=== PATIENT | female | born 1955 | race Caucasian/White ===

== ENCOUNTER 2017-07-22 11:49 | Inpatient (IN) | payer MEDICARE, OTHER ==
[~2017-07-22] VITALS: Ht 160 cm; Wt 57.2 kg
[~2017-07-22 11:49] MED LIST: ALPR0.25 PO; ASPI81TA3 PO; BEN25 PO; CHOL2000 PO; CIPR500T4 PO; CLON-429 PO; DUR100 TD; ESCI10TA PO; HYDR2TAB36 PO; LACTINEX PO; LAMO25TB2 PO; LEVO137T3 PO; MAGN400C PO; METR500T PO; MIDO5TAB PO; MULT-761 PO; PANT40TA4 PO; PRED5TAB PO
[2017-07-22] MEDS ORDERED: ONDANSETRON 4 MG INJ ONE (12:48)
[2017-07-22] MEDS ORDERED: SOD CHLORIDE 0.9% 1,000 ML IV STA ×2 (12:50→16:31)
[2017-07-22] MEDS ORDERED: HYDROmorphONE 1 MG/ML SYG IV STA ×3 (12:50→19:00)
[2017-07-22] MEDS ORDERED: PROCHLORPERAZINE 10 MG INJ IV ONE ×2 (13:00→17:00)
[2017-07-22 13:54] LABS: BASOPHIL # 0.1 10^3/ul (0.0-0.1); BASOPHILS % 0.7 % (0.0-2.0); EOSINOPHILS % 0.4 % (0.0-7.0); HEMATOCRIT 41.1 % (37.0-47.0); HEMOGLOBIN 13.9 g/dl (12.0-16.0); LYMPHOCYTES # 1.3 10^3/ul (0.8-2.9); LYMPHOCYTES % 13.6 % (15.0-51.0); MEAN CORPUSCULAR HGB CONC 33.8 g/dl (32.0-37.0); MEAN CORPUSCULAR VOLUME 88.8 fl (82.0-101.0); MEAN PLATELET VOLUME 9.5 fl (7.4-10.4); MONOCYTE # 0.4 10^3/ul (0.3-0.9); MONOCYTES % 3.6 % (0.0-11.0); NEUTROPHIL # 7.9 10^3/ul (1.6-7.5); NEUTROPHILS % 81.3 % (39.0-77.0); PLATELET COUNT 501 10^3/UL (140-415); RED BLOOD COUNT 4.63 10^6/ul (4.20-5.40); RED CELL DISTRIBUTION WIDTH 12.3 % (11.5-14.5); WHITE BLOOD COUNT 9.7 10^3/ul (4.8-10.8)
[2017-07-22 14:30] LABS: ALBUMIN 4.4 g/dl (3.3-4.9); ALBUMIN/GLOBULIN RATIO 1.1; BILIRUBIN,INDIRECT 0.2 mg/dl (0-1.1); BILIRUBIN,TOTAL 0.2 mg/dl (0.2-1.3); CALCIUM 10.6 mg/dl (8.4-10.2); CREATININE 0.64 mg/dl (0.44-1.00); POTASSIUM 3.7 mmol/L (3.5-5.1); TOTAL PROTEIN 8.4 g/dl (6.1-8.1)
[2017-07-22] MEDS ORDERED: LORA1TAB PO (14:39)
[2017-07-22] MEDS ORDERED: SOD CHLORIDE 0.9% 100 ML ONE (14:50)
[2017-07-22] MEDS ORDERED: IOHEXOL 300MG/ML 150 ML BTL ONE (14:50)
--- NOTE | 2017-07-22 15:19 | RADRPT ---
PROCEDURE: CT Abdomen and Pelvis with contrast. CLINICAL INDICATION: Abdominal pain TECHNIQUE: CT scan of the abdomen and pelvis with contrast was performed on a multidetector high-r esolution CT scanner. Coronal and sagittal reformatted images were obtained from the axial source im ages. Images were reviewed on a high-resolution PACS workstation. 80 cc of Isovue 300 iodinated cont rast was administered intravenously without reported complication. The total exam CTDI equals 9 mGy and the total exam DLP equals 441 mGy-cm. One or more of the following dose reduction techniques w ere used: Automated exposure control, Adjustment of the mA and/or kV according to patient size, and/ or use of iterative reconstruction technique. DICOM images are available. COMPARISON: Abdominal CT 10/25/2014 FINDINGS: The lung bases are clear. Unchanged focal geographic hepatic hypoattenuation adjacent to the fissure of the ligamentum teres. Portal vein is patent. No pancreatic ductal dilatation. The spleen and adrenals are unremarkable. No focal pericholecystic inflammatory changes. No hydronephrosis. No obstructing renal stone. No bowel obstruction. Appendix not visualized. Diffuse colonic wall thickening is identified. Bilate ral fat containing posterior lateral hernias in the flanks at the level of the kidneys, unchanged. No significant retroperitoneal lymphadenopathy, ascites or evidence of pneumoperitoneum. Aortoiliac atherosclerosis. No rim-enhancing fluid collection. Uterus is absent. Degenerative changes of the spine with chronic compression fractures L1 and L5. Streak artifact from right total hip arthroplasty and left femoral andry and screws for prior left hip fracture. IMPRESSION: Diffuse colonic wall thickening compatible with colitis. No evidence of bowel obstruction or intra-abdominal abscess. Focal hepatic steatosis adjacent to the fissure of the ligamentum teres. RPTAT: AA .Luis Fernando Nelson MD, MD Date Time Electronically viewed and signed by .Luis Fernando Nelson MD, MD on 07/22/2017 15:19 .T/
[2017-07-22] MEDS ORDERED: ERTAPENEM SODIUM 1 GM in SOD CHLORIDE 0.9% 100 ML IVPB ONE (17:00)
--- NOTE | 2017-07-22 17:00 | ERD ---
ER Documentation Chief Complaint Chief Complaint NAUSEA AND VOMITING FOR THE PAST FEW DAYS. GEN WEAKNESS. NO TRAUMA. HPI This is a 62-year-old female who is here for nausea vomiting diarrhea abdominal pain. Patient has a history of ulcerative colitis. The patient states her diarrhea and vomiting is nonbloody. Patient has diffuse crampy abdominal pain this onset is been going on for 2 days now. She states she has had about 20 rounds of diarrhea and 15 bouts of vomiting. Denies any fever or back pain. She says the symptoms are mostly consistent with ulcerative colitis exacerbation. Patient states her pain is moderate to severe ROS All systems reviewed and are negative except as per history of present illness. Medications Home Meds Reported Medications Lorazepam* (Lorazepam*) 1 Mg Tablet, 1 MG PO BID Y for ANXIETY, #30 TAB 07/22/17 Pantoprazole (Protonix) 40 Mg Tabec, 40 MG PO DAILY 09/05/13 Multivitamin (MULTI VITAMIN DAILY) 1 Each Tablet, 1 EACH PO DAILY 09/05/13 Midodrine (Proamatine) 5 Mg Tablet, 5 MG PO TID 09/05/13 Lamotrigine* (Lamictal* CHEW) 25 Mg Tab.disper, 25 MG PO BID 09/05/13 Hydromorphone Hcl* (Dilaudid*) 2 Mg Tablet, 2 MG PO Q3NARC 09/05/13 Fentanyl Patch* (Duragesic Patch*) 1 Patch Patch, 1 PATCH TD Q72 09/05/13 Escitalopram Oxalate* (Lexapro*) 10 Mg Tablet, 10 MG PO DAILY 09/05/13 Diphenhydramine Hcl* (Benadryl*) 25 Mg Cap, 25 MG PO Q6 09/05/13 Clonazepam* (Klonopin*) 0.5 Mg Tab, 0.5 MG PO HS 09/05/13 Cholecalciferol* (Vitamin D3*) 2,000 Unit Cap, 2000 UNIT PO DAILY 09/05/13 Aspirin (Aspirin) 81 Mg Chew, 81 MG PO DAILY 09/05/13 Alprazolam* (Xanax*) 0.25 Mg Tablet, 0.25 MG PO TID 09/05/13 Lactobacillus Acidophilus* (Lactinex*) 1 Tab Chew, 1 TAB PO DAILY 09/05/13 Discontinued Reported Medications Magnesium Oxide (Mag Oxide) 400 Mg Capsule, 400 MG PO DAILY 09/10/13 Prednisone* (Prednisone*) 5 Mg Tab, 5 MG PO DAILY 09/05/13 Levothyroxine Sodium* (Levothyroxine Sodium*) 137 Mcg Tablet, 137 MCG PO DAILY 09/05/13 Discontinued Scripts Ciprofloxacin Hcl* (Ciprofloxacin Hcl*) 500 Mg Tablet, 500 MG PO BID for 7 Days , TAB Prov:DOM CONCEPCION MD 10/27/14 Metronidazole* (Flagyl*) 500 Mg Tablet, 500 MG PO Q8 for 10 Days, TAB Prov:DOM CONCEPCION MD 10/27/14 Allergies Allergies: Coded Allergies: cortisone (Verified Allergy, Unknown, BREAKS OUT WITH RASH, 07/22/17) PMhx/Soc History of Surgery: Yes (HYSTERECTOMY,NICA HIP SURGERY) Anesthesia Reaction: No Hx Neurological Disorder: No Hx Respiratory Disorders: No Hx Cardiac Disorders: Yes (HTN) Hx Psychiatric Problems: Yes (DEPRESSION) Hx Miscellaneous Medical Probl: Yes (CHRONIC PAIN,DVT,WAS ON CHEMOTHERAPY LONG TIME AGO PER PT,LYMPHOMA) Hx Alcohol Use: No Hx Substance Use: No Hx Tobacco Use: Yes Smoking Status: Current every day smoker FmHx Family History: No coronary disease Physical Exam Vitals Vital Signs Date Time Temp Pulse Resp B/P Pulse Ox O2 Delivery O2 Flow Rate FiO2 07/22/17 16:26 104 20 84/52 94 Room Air 07/22/17 14:30 107 20 111/57 99 Room Air 07/22/17 11:58 97.7 78 20 105/61 98 Physical Exam Const: Well-developed, well-nourished, in obvious pain Head: Atraumatic, normocephalic Eyes: Normal Conjunctiva, PERRLA, EOMI, normal sclera, no nystagmus ENT: Normal External Ears, Nose and Mouth, moist mucus membranes. Neck: Full range of motion. No meningismus, no lymphadenopathy. Resp: Clear to auscultation bilaterally, no wheezing, rhonchi, rales Cardio: Regular rate and rhythm, no murmurs, S1 S2 present Abd: Soft, diffuse moderate tenderness, non distended. Normal bowel sounds, no guarding or rebound, no pulsitile abdominal masses or bruits Skin: No petechiae or rashes, no ecchymosis , no maculopapular rash Back: No midline or flank tenderness Ext: No cyanosis, or edema, FROM x 4, normal inspection, neurovascularly intact x 4 Neur: Awake and alert, STR 5/5 x 4, sensation intact x 4, no focal findings, cerebellum intact Psych: Normal Mood and Affect Result Diagram: 07/22/17 1335 07/22/17 1335 Results 24 hrs Laboratory Tests Test 07/22/17 13:35 White Blood Count 9.710^3/ul Red Blood Count 4.6310^6/ul Hemoglobin 13.9g/dl Hematocrit 41.1% Mean Corpuscular Volume 88.8fl Mean Corpuscular Hemoglobin 30.0pg Mean Corpuscular Hemoglobin Concent 33.8g/dl Red Cell Distribution Width 12.3% Platelet Count 45526^3/UL Mean Platelet Volume 9.5fl Neutrophils % 81.3% Lymphocytes % 13.6% Monocytes % 3.6% Eosinophils % 0.4% Basophils % 0.7% Nucleated Red Blood Cells % 0.0/100WBC Neutrophils # 7.910^3/ul Lymphocytes # 1.310^3/ul Monocytes # 0.410^3/ul Eosinophils # 0.010^3/ul Basophils # 0.110^3/ul Nucleated Red Blood Cells # 0.010^3/ul Sodium Level 142mmol/L Potassium Level 3.7mmol/L Chloride Level 100mmol/L Carbon Dioxide Level 28mmol/L Anion Gap 18 Blood Urea Nitrogen 11mg/dl Creatinine 0.64mg/dl Glucose Level 128mg/dl Calcium Level 10.6mg/dl Total Bilirubin 0.2mg/dl Direct Bilirubin 0.00mg/dl Indirect Bilirubin 0.2mg/dl Aspartate Amino Transf (AST/SGOT) 35IU/L Alanine Aminotransferase (ALT/SGPT) 43IU/L Alkaline Phosphatase 149IU/L Total Protein 8.4g/dl Albumin 4.4g/dl Globulin 4.00g/dl Albumin/Globulin Ratio 1.10 Lipase 154U/L Current Medications Medications (Trade) Dose Ordered Sig/Ernst Route PRN Reason Start Time Stop Time Status Last Admin Dose Admin Ondansetron HCl 4 mg 4 mg STK-MED ONCE .ROUTE 07/22/17 12:48 07/22/17 12:49 DC Sodium Chloride (NS) 1,000 ml @ 1,000 mls/hr Q1H STAT IV 07/22/17 12:50 07/22/17 13:49 DC 07/22/17 13:45 Hydromorphone HCl (Dilaudid) 1 mg ONCE STAT IV 07/22/17 12:50 07/22/17 12:51 DC 07/22/17 13:45 Prochlorperazine (Compazine Inj) 10 mg ONCE ONCE IV 07/22/17 13:00 07/22/17 13:01 DC 07/22/17 13:45 Hydromorphone HCl (Dilaudid) 1 mg ONCE STAT IV 07/22/17 14:40 07/22/17 14:41 DC 07/22/17 14:56 IV Flush 10 ml 10 ml STK-MED ONCE .ROUTE 07/22/17 14:50 07/22/17 14:51 DC 07/22/17 15:05 Sodium Chloride (NS) 100 ml @ ud STK-MED ONCE .ROUTE 07/22/17 14:50 07/22/17 14:51 DC 07/22/17 15:05 Iohexol 150 ml 150 ml STK-MED ONCE .ROUTE 07/22/17 14:50 07/22/17 14:51 DC 07/22/17 15:05 Sodium Chloride (NS) 1,000 ml @ 1,000 mls/hr Q1H STAT IV 07/22/17 16:31 07/22/17 17:30 07/22/17 16:54 Prochlorperazine (Compazine Inj) 10 mg ONCE ONCE IV 07/22/17 17:00 07/22/17 17:01 Procedures/MDM PROCEDURE: CT Abdomen and Pelvis with contrast. CLINICAL INDICATION: Abdominal pain TECHNIQUE: CT scan of the abdomen and pelvis with contrast was performed on a multidetector high-resolution CT scanner. Coronal and sagittal reformatted images were obtained from the axial source images. Images were reviewed on a high-resolution PACS workstation. 80 cc of Isovue 300 iodinated contrast was administered intravenously without reported complication. The total exam CTDI equals 9 mGy and the total exam DLP equals 441 mGy-cm. One or more of the following dose reduction techniques were used: Automated exposure control, Adjustment of the mA and/or kV according to patient size, and/or use of iterative reconstruction technique. DICOM images are available. COMPARISON: Abdominal CT 10/25/2014 FINDINGS: The lung bases are clear. Unchanged focal geographic hepatic hypoattenuation adjacent to the fissure of the ligamentum teres. Portal vein is patent. No pancreatic ductal dilatation. The spleen and adrenals are unremarkable. No focal pericholecystic inflammatory changes. No hydronephrosis. No obstructing renal stone. No bowel obstruction. Appendix not visualized. Diffuse colonic wall thickening is identified. Bilateral fat containing posterior lateral hernias in the flanks at the level of the kidneys, unchanged. No significant retroperitoneal lymphadenopathy, ascites or evidence of pneumoperitoneum. Aortoiliac atherosclerosis. No rim-enhancing fluid collection. Uterus is absent. Degenerative changes of the spine with chronic compression fractures L1 and L5. Streak artifact from right total hip arthroplasty and left femoral andry and screws for prior left hip fracture. IMPRESSION: Diffuse colonic wall thickening compatible with colitis. No evidence of bowel obstruction or intra-abdominal abscess. Focal hepatic steatosis adjacent to the fissure of the ligamentum teres. RPTAT: AA .Luis Fernando Nelson MD, MD Date Time Electronically viewed and signed by .Luis Fernando Nelson MD, on 07/22/2017 15:19 .T/ CC: MEHNAZ CASE DO Patient received IV fluids. She received Invanz 1 g IV. The patient has had continued vomiting here requiring a few doses of Compazine. The patient's pain is under control but she still quite nauseated. We will admit for IV fluids and bowel rest. The patient has diffuse colon wall thickening consistent with colitis likely ulcerative colitis exacerbation Departure Diagnosis: Primary Impression: Colitis Additional Impression: Abdominal pain Abdominal location: generalized Qualified Code: R10.84 - Generalized abdominal pain Condition: Stable MEHNAZ CASE DO Jul 22, 2017 17:00
[2017-07-22] MEDS ORDERED: SOD CHLORIDE 0.9% 1,000 ML IV SCH (17:11)
[2017-07-22] MEDS ORDERED: ACETAMINOPHEN 325 MG TAB PO PRN (17:30)
[2017-07-22] MEDS ORDERED: ONDANSETRON 4 MG INJ IV PRN ×2 (17:30→18:30)
--- NOTE | 2017-07-22 18:11 | HP ---
Date/Time of Note Date/Time of Note DATE: 07/22/17 TIME: 18:00 Assessment/Plan VTE Prophylaxis VTE Prophylaxis Intervention: LMWH Assessment/Plan Chief Complaint/Hosp Course 62 yo female with h/o C Diff colitis, questionable reported history of UC, opiate use for chronic pain syndrome, RA on methotrexate and xeljanz who presents with nausea, vomiting, diarrhea with imaging suggestive of colitis Colitis: - Patient reports a history of ulcerative colitis, though not clear if this is a true diagnosis from review of her chart - will treat for infectious colitis for now with zosyn - Consult GI for consideration of colonoscopy - Send stool for culture and C Diff RA: - Hold immunosupprisives (xeljanz and MTX) while concern for infection chronic pain w chronic opiate dependence: - Continue home [place] dosing General anxiety d/o: - Continue home meds: buspar, klonipin, celexa Discharge to home when colitis resolved Problems: HPI/ROS Admit Date/Time Admit Date/Time Hx of Present Illness 62 yo female with reported history of UC (though not clear from our chart she has this), RA on methotrexate and Xeljanz, C Diff colitis, chornic pain sydnrome on chornic opaites who presents with abdominal pain as well as nausea and vomiting and very frequent watery diarrhea. Patient has had these symptoms since yesterday. Unable to tolerate PO. In ED, CT scan showed colitis. She was very nauseous requiring numerous rounds of antiemetics. Currently major compliant is of abdmoinal pain for which she requests pian meds. PMH/Family/Social Social History Smoking Status: Current every day smoker Exam/Review of Systems Vital Signs Vitals Vital Signs Date Time Temp Pulse Resp B/P Pulse Ox O2 Delivery O2 Flow Rate FiO2 07/22/17 16:26 104 20 84/52 94 Room Air 07/22/17 11:58 97.7 Exam Exam Mildly uncomfortable appearing, but resting calmly in no distress AOx3 RRR, normal heart sounds Breathign comfortably, nonlabored Abdomen wtih voluntary guarding, no rebound tenderness, soft Ext withtout edema Labs Result Diagram: 07/22/17 1335 07/22/17 1335 Medications Medications Current Medications Sodium Chloride 1,000 ml @ 80 mls/hr [id number] IV ; Start 07/22/17 at 17:11; Stop 07/23/17 at 05:40 Piperacillin Sod/ Tazobactam Sod (Zosyn 3.375gm/ 50 ml (Pmx)) 50 ml @ 12.5 mls/ hr TID@ IVPB ; Start 07/22/17 at 18:00; Status JUAN PERKINS MD Jul 22, 2017 18:10
[2017-07-22] MEDS ORDERED: morphine 2 MG INJ IV PRN (18:30)
[2017-07-22] MEDS ORDERED: NACL 0.9% 3 ML SYG IV SCH (18:30)
[2017-07-22] MEDS: PIPER-TAZO 3.375 GM IV (PMX) 50 ML IVPB SCH (19:49)
[2017-07-22 20:24] VITALS: TEMP 98.1
[2017-07-22 21:35] VITALS: BP 93/52; RESP 16
[2017-07-22 21:49] VITALS: Ht 160 cm; Wt 57.2 kg
[2017-07-22] MEDS: HYDROmorphONE 1 MG/ML SYG IV PRN (22:11)
[2017-07-22] MEDS: ALPRAZOLAM 0.25 MG TAB PO SCH (22:11)
[2017-07-22] MEDS: METOCLOPRAMIDE 10 MG INJ IV SCH (22:11)
[2017-07-23] MEDS: PIPER-TAZO 3.375 GM IV (PMX) 50 ML IVPB SCH ×4 (01:15→18:20)
[2017-07-23 02:00] VITALS: BP 96/47; RESP 16
[2017-07-23] MEDS: HYDROmorphONE 1 MG/ML SYG IV PRN ×5 (02:53→19:59)
[2017-07-23] MEDS: METOCLOPRAMIDE 10 MG INJ IV SCH ×4 (05:27→18:18)
[2017-07-23 05:51] LABS: BASOPHIL # 0.1 10^3/ul (0.0-0.1); BASOPHILS % 0.7 % (0.0-2.0); EOSINOPHILS # 0.3 10^3/ul (0.0-0.5); EOSINOPHILS % 3.1 % (0.0-7.0); HEMATOCRIT 31.9 % (37.0-47.0); HEMOGLOBIN 10.4 g/dl (12.0-16.0); LYMPHOCYTES # 1.6 10^3/ul (0.8-2.9); MEAN CORPUSCULAR HEMOGLOBIN 29.9 pg (29.0-33.0); MEAN CORPUSCULAR HGB CONC 32.6 g/dl (32.0-37.0); MEAN CORPUSCULAR VOLUME 91.7 fl (82.0-101.0); MEAN PLATELET VOLUME 9.5 fl (7.4-10.4); MONOCYTE # 0.8 10^3/ul (0.3-0.9); MONOCYTES % 9.3 % (0.0-11.0); NEUTROPHIL # 5.4 10^3/ul (1.6-7.5); NEUTROPHILS % 66.3 % (39.0-77.0); PLATELET COUNT 345 10^3/UL (140-415); RED BLOOD COUNT 3.48 10^6/ul (4.20-5.40); RED CELL DISTRIBUTION WIDTH 12.5 % (11.5-14.5); WHITE BLOOD COUNT 8.1 10^3/ul (4.8-10.8)
[2017-07-23 06:27] LABS: ALBUMIN/GLOBULIN RATIO 0.93
[2017-07-23 06:36] LABS: ALBUMIN 2.8 g/dl (3.3-4.9); BILIRUBIN,INDIRECT 0.1 mg/dl (0-1.1); BILIRUBIN,TOTAL 0.1 mg/dl (0.2-1.3); CALCIUM 8.8 mg/dl (8.4-10.2); CREATININE 0.58 mg/dl (0.44-1.00); TOTAL PROTEIN 5.8 g/dl (6.1-8.1)
[2017-07-23 06:37] LABS: POTASSIUM 3.3 mmol/L (3.5-5.1)
[2017-07-23 08:08] VITALS: BP 89/48; RESP 12
[2017-07-23] MEDS: ESCITALOPRAM 10 MG TAB PO SCH (08:45)
[2017-07-23] MEDS: ALPRAZOLAM 0.25 MG TAB PO SCH ×3 (08:45→19:59)
[2017-07-23] MEDS: ENOXAPARIN 40 MG/0.4 ML SYG SC SCH (08:53)
[2017-07-23] MEDS ORDERED: DIPHENHYDRAMINE 25 MG CAP PO PRN (09:00)
[2017-07-23] MEDS: HYDROCODONE/APAP (5/325) TAB PO PRN ×2 (11:51→18:18)
--- NOTE | 2017-07-23 13:46 | PN ---
Date/Time of Note Date/Time of Note DATE: 07/23/17 TIME: 13:44 Assessment/Plan VTE Prophylaxis VTE Prophylaxis Intervention: LMWH Lines/Catheters IV Catheter Type (from Nrsg): Mid Line Urinary Cath still in place: Yes Reason Cath still needed: urinary retention Assessment/Plan Chief Complaint/Hosp Course 62 yo female with h/o C Diff colitis, questionable reported history of UC, opiate use for chronic pain syndrome, RA on methotrexate and xeljanz who presents with nausea, vomiting, diarrhea with imaging suggestive of colitis Colitis: - Patient reports a history of ulcerative colitis, though not clear if this is a true diagnosis from review of her chart - Continue treat for infectious colitis for now with zosyn - Consult GI for consideration of colonoscopy - Diarrhea has resolved, unable to provide sample for C Diff - Manifesting sings of drug seeking behavior, so malingering certainly on the differential here RA: - Hold immunosupprisives (xeljanz and MTX) while concern for infection chronic pain w chronic opiate dependence: - Continue home [place] dosing General anxiety d/o: - Continue home meds: buspar, klonipin, celexa Discharge to home when colitis resolved Problems: Subjective 24 Hr Interval Summary Free Text/Dictation Diarrhea resolved, unable to provide stool stample Still complaitns of abdominal pain, requesting IV benadryl and increasing doses of dilaudid by name. Says she takes "8 mg of dilaudid normally" Exam/Review of Systems Vital Signs Vitals Vital Signs Date Time Temp Pulse Resp B/P Pulse Ox O2 Delivery O2 Flow Rate FiO2 07/23/17 08:08 98.7 89 12 89/48 93 07/22/17 20:24 Room Air Intake and Output 07/22/17 07/22/17 07/23/17 14:59 22:59 06:59 Intake Total 50 ml 580 ml Output Total 600 ml Balance 50 ml -20 ml Exam Abdomen with volunatry guarding, unable to get a great assessment Appears very comfortable, AOX3, no distress Results Result Diagram: 07/23/1752807/23/17 05 Results 24 hrs Laboratory Tests Test 07/23/17 05:29 White Blood Count 8.1 Red Blood Count 3.48 #L Hemoglobin 10.4 #L Hematocrit 31.9 #L Mean Corpuscular Volume 91.7 Mean Corpuscular Hemoglobin 29.9 Mean Corpuscular Hemoglobin Concent 32.6 Red Cell Distribution Width 12.5 Platelet Count 345 # Mean Platelet Volume 9.5 Neutrophils % 66.3 Lymphocytes % 20.0 Monocytes % 9.3 Eosinophils % 3.1 Basophils % 0.7 Nucleated Red Blood Cells % 0.0 Neutrophils # 5.4 Lymphocytes # 1.6 Monocytes # 0.8 Eosinophils # 0.3 Basophils # 0.1 Nucleated Red Blood Cells # 0.0 Sodium Level Potassium Level 3.3 L Chloride Level 111 H Carbon Dioxide Level 27 Anion Gap 8 # Blood Urea Nitrogen 12 Creatinine 0.58 Glucose Level 80 # Calcium Level 8.8 Total Bilirubin 0.1 L Direct Bilirubin 0.00 Indirect Bilirubin 0.1 Aspartate Amino Transf (AST/SGOT) 28 Alanine Aminotransferase (ALT/SGPT) 36 Alkaline Phosphatase 75 Total Protein 5.8 #L Albumin 2.8 #L Globulin 3.00 Albumin/Globulin Ratio 0.93 Medications Medications Current Medications Piperacillin Sod/ Tazobactam Sod (Zosyn 3.375gm/ 50 ml (Pmx)) 50 ml @ 100 mls/ hr Q6 IVPB Last administered on 07/23/17 11:51; Admin Dose 100 MLS/HR; Start 07/22/17 at 19:00 Alprazolam (Xanax) 0.25 mg TID PO Last administered on 07/23/17 12:33; Admin Dose 0.25 MG; Start 07/22/17 at 21:00 Escitalopram Oxalate (Lexapro) 10 mg DAILY PO Last administered on 07/23/17 08:45; Admin Dose 10 MG; Start 07/23/17 at 09:00 Acetaminophen/ Hydrocodone Bitart ([place] (5/325)) 2 tab Q6H PRN PO SEVERE PAIN LEVEL 7-10 Last administered on 07/23/17 11:51; Admin Dose 2 TAB; Start 07/22 at 18:30 Enoxaparin Sodium (Lovenox) 40 mg DAILY SC Last administered on 07/23/17 08: 53; Admin Dose 40 MG; Start 07/23/17 at 09:00 Hydromorphone HCl (Dilaudid) 1 mg Q4H PRN IV PAIN Last administered on 10:44; Admin Dose 1 MG; Start 07/22/17 at 22:00 Metoclopramide HCl (Reglan) 10 mg Q6 IV Last administered on 07/23/17 11:52; Admin Dose 10 MG; Start 07/22/17 at 22:00 Influenza Virus Vaccine (Fluzone) 0.5 ml ONCE ONCE IM* ; Start 07/24/17 at 09:00 ; Stop 07/24/17 at 09:01 Diphenhydramine HCl (Benadryl) 25 mg Q6H PRN PO ITCHING Last administered on 09:23; Admin Dose 25 MG; Start 07/23/17 at 09:00 JUAN JIMÉNEZ MD Jul 23, 2017 13:46
[2017-07-23 14:33] VITALS: BP 90/49; RESP 14
--- NOTE | 2017-07-23 15:49 | CONS ---
Date/Time of Note Date/Time of Note DATE: 07/23/17 TIME: 15:05 Assessment/Plan Assessment/Plan Chief Complaint/Hosp Course Assessment: Questionable ulcerative colitis consistent with imaging Rheumatoid arthritis with swan-neck deformities Chronic pain syndrome Anxiety disorder History of lymphoma Plan: Colonoscopy tomorrow afternoon Bowel prep for procedure Recommend interior decorator painting for RA pain Consultation performed in collaboration with Dr. Rowe Problems: Consultation Date/Type/Reason Admit Date/Time Date of Consultation: Jul 23, 2017 Reason for Consultation GI Hx of Present Illness This is 62 yo female with h/o C Diff colitis, history of UC, RA and chronic pain syndrome admitted for abdominal pain nausea, vomiting, and diarrhea. Symptoms started the day before yesterday. CT scan shows thickening of a colon wall consistent with diagnosis of colitis. Patient states she has has been diagnosed with ulcerative colitis 6 years ago when she had her colonoscopy, her last colonoscopy was 3 years ago. She is not on any maintenance medications for colitis. She is complaining of moderate pain from severe rheumatoid arthritis. She has severe deformities in her hands and feet. Able to walk with a walker. Patient also has history of lymphoma with 3 rounds of chemo she has been in remission for 4 years. She is also suffering from anxiety disorder. Past Medical History Medical History: other (See HPI) Past Surgical History Past Surgical Hx: appendectomy, endoscopy (Colonoscopy 2), other (Total hip replacement 2, vulvectomy. Laparoscopies) Family History Significant Family History: cancer (Lung cancer - mother) Social History Alcohol Use: none Smoking Status: Current every day smoker Drug Use: none Other Social History Lives in assisted living facility Exam/Review of Systems Vital Signs Vitals Vital Signs Date Time Temp Pulse Resp B/P Pulse Ox O2 Delivery O2 Flow Rate FiO2 07/23/17 14:33 97.9 77 14 90/49 95 07/22/17 20:24 Room Air Intake and Output 07/22/17 07/22/17 07/23/17 15:00 23:00 07:00 Intake Total 50 ml 580 ml Output Total 600 ml Balance 50 ml -20 ml Exam PHYSICAL EXAMINATION: GENERAL: Well developed, well nourished, alert & oriented x 3, in no acute distress SKIN: No lesions, no stigmata chronic liver disease, no evidence of bleeding diathesis LYMPHATIC: No palpable lymphadenopathy. HEAD: Normocephalic, atraumatic, no tenderness. EYES: Pupils equal reactive to light and accommodation, full extraocular movements, sclera clear, non-icteric, no discharge. EARS/NOSE AND THROAT: Ears normal, nose normal, oropharynx normal, oral membranes well hydrated without lesions. NECK: Supple, no masses, thyroid normal, JVP within normal limits, carotids normal without bruits. CHEST: Inspection within normal limits. CARDIOVASCULAR: Heart: Regular rate and rhythm, no murmurs, gallops or rubs. Peripheral pulses present within normal limits, no cyanosis, clubbing or edemas. No pulsatile abdominal mass RESPIRATORY: Lungs clear to auscultation and percussion, no wheezing, no rubs GASTROINTESTINAL AND LIVER: Abdomen: Soft, generalized tenderness especially in the right lower quadrant, non-distended, no hernias, no masses, no organomegaly , no ascites, no guarding, no rebound tenderness, normoactive bowel sounds. Rectal: Deferred. GENITOURINARY: Female genitalia within normal limits. EXTREMITIES: No cyanosis, clubbing or edema. 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 Results Result Diagram: 07/23/1752807/23/17528 Results 24 hrs Laboratory Tests Test 07/23/17 05:29 White Blood Count 8.1 Red Blood Count 3.48 #L Hemoglobin 10.4 #L Hematocrit 31.9 #L Mean Corpuscular Volume 91.7 Mean Corpuscular Hemoglobin 29.9 Mean Corpuscular Hemoglobin Concent 32.6 Red Cell Distribution Width 12.5 Platelet Count 345 # Mean Platelet Volume 9.5 Neutrophils % 66.3 Lymphocytes % 20.0 Monocytes % 9.3 Eosinophils % 3.1 Basophils % 0.7 Nucleated Red Blood Cells % 0.0 Neutrophils # 5.4 Lymphocytes # 1.6 Monocytes # 0.8 Eosinophils # 0.3 Basophils # 0.1 Nucleated Red Blood Cells # 0.0 Sodium Level Potassium Level 3.3 L Chloride Level 111 H Carbon Dioxide Level 27 Anion Gap 8 # Blood Urea Nitrogen 12 Creatinine 0.58 Glucose Level 80 # Calcium Level 8.8 Total Bilirubin 0.1 L Direct Bilirubin 0.00 Indirect Bilirubin 0.1 Aspartate Amino Transf (AST/SGOT) 28 Alanine Aminotransferase (ALT/SGPT) 36 Alkaline Phosphatase 75 Total Protein 5.8 #L Albumin 2.8 #L Globulin 3.00 Albumin/Globulin Ratio 0.93 Medications Medications Current Medications Piperacillin Sod/ Tazobactam Sod (Zosyn 3.375gm/ 50 ml (Pmx)) 50 ml @ 100 mls/ hr Q6 IVPB Last administered on 07/23/17 11:51; Admin Dose 100 MLS/HR; Start 07/22/17 at 19:00 Alprazolam (Xanax) 0.25 mg TID PO Last administered on 07/23/17 12:33; Admin Dose 0.25 MG; Start 07/22/17 at 21:00 Escitalopram Oxalate (Lexapro) 10 mg DAILY PO Last administered on 07/23/17 08:45; Admin Dose 10 MG; Start 07/23/17 at 09:00 Acetaminophen/ Hydrocodone Bitart ([place] (5/325)) 2 tab Q6H PRN PO SEVERE PAIN LEVEL 7-10 Last administered on 07/23/17 11:51; Admin Dose 2 TAB; Start 07/22 at 18:30 Enoxaparin Sodium (Lovenox) 40 mg DAILY SC Last administered on 07/23/17 08: 53; Admin Dose 40 MG; Start 07/23/17 at 09:00 Metoclopramide HCl (Reglan) 10 mg Q6 IV Last administered on 07/23/17 11:52; Admin Dose 10 MG; Start 07/22/17 at 22:00 Influenza Virus Vaccine (Fluzone) 0.5 ml ONCE ONCE IM* ; Start 07/24/17 at 09:00 ; Stop 07/24/17 at 09:01 Diphenhydramine HCl (Benadryl) 25 mg Q6H PRN PO ITCHING Last administered on 09:23; Admin Dose 25 MG; Start 07/23/17 at 09:00 Copies To: CC: SPENCER ROWE MD, ANASTASIA NP Jul 23, 2017 15:33
[2017-07-23] MEDS ORDERED: BISACODYL (EC) 5 MG TAB PO ONE (16:00)
[2017-07-23] MEDS ORDERED: POTASSIUM CHLORIDE 250 ML IVPB ONE (17:00)
[2017-07-23] MEDS ORDERED: MAGNESIUM CITRATE 300 ML BTL PO ONE (17:30)
[2017-07-23] MEDS ORDERED: POLYETHYLENE GLYCOL 3350 119 GM POWDER PO ONE (18:30)
[2017-07-23 20:00] VITALS: BP 114/69; RESP 20
[2017-07-23] MEDS ORDERED: clonAZEPAM 0.5 MG TAB PO SCH (22:15)
--- NOTE | 2017-07-23 22:54 | RADRPT ---
PROCEDURE: XR Chest. CLINICAL INDICATION: Preop evaluation. TECHNIQUE: Single frontal view of the chest was obtained COMPARISON: Chest radiograph dated October 11, 2013. FINDINGS: The heart and mediastinum are within normal limits. The lungs are clear. There is no pleural effusion or pneumothorax. Degenerative changes of the spine and shoulder joints are present. IMPRESSION: 1. No acute cardiopulmonary disease. RPTAT:AAJJ Radha Currie Physician Date Time Electronically viewed and signed by Radha Currie Physician on 07/23/2017 22:53 QL/
[2017-07-24] VITALS (10 sets, daily range): BP systolic 79–130; BP diastolic 38–60; PULSE 68–80; RESP 15–22
[2017-07-24] MEDS: METOCLOPRAMIDE 10 MG INJ IV SCH ×3 (00:03→12:36)
[2017-07-24] MEDS: HYDROmorphONE 1 MG/ML SYG IV PRN ×4 (00:04→13:47)
[2017-07-24] MEDS: PIPER-TAZO 3.375 GM IV (PMX) 50 ML IVPB SCH ×4 (00:04→18:46)
[2017-07-24] MEDS: HYDROCODONE/APAP (5/325) TAB PO PRN ×2 (01:18→08:12)
[2017-07-24] MEDS ORDERED: POLYETHYLENE GLYCOL 3350 119 GM POWDER PO ONE (06:00)
[2017-07-24 06:08] LABS: BASOPHIL # 0.1 10^3/ul (0.0-0.1); BASOPHILS % 1.1 % (0.0-2.0); EOSINOPHILS # 0.3 10^3/ul (0.0-0.5); EOSINOPHILS % 4.5 % (0.0-7.0); HEMATOCRIT 33.2 % (37.0-47.0); HEMOGLOBIN 11.1 g/dl (12.0-16.0); LYMPHOCYTES # 1.6 10^3/ul (0.8-2.9); LYMPHOCYTES % 24.3 % (15.0-51.0); MEAN CORPUSCULAR HEMOGLOBIN 30.7 pg (29.0-33.0); MEAN CORPUSCULAR HGB CONC 33.4 g/dl (32.0-37.0); MEAN CORPUSCULAR VOLUME 91.7 fl (82.0-101.0); MEAN PLATELET VOLUME 11.5 fl (7.4-10.4); MONOCYTE # 0.7 10^3/ul (0.3-0.9); MONOCYTES % 10.6 % (0.0-11.0); NEUTROPHIL # 3.9 10^3/ul (1.6-7.5); PLATELET COUNT 202 10^3/UL (140-415); RED BLOOD COUNT 3.62 10^6/ul (4.20-5.40); RED CELL DISTRIBUTION WIDTH 13.5 % (11.5-14.5); WHITE BLOOD COUNT 6.6 10^3/ul (4.8-10.8)
[2017-07-24 06:40] LABS: INR 0.99; PROTIME 13.2 Sec (11.9-14.9)
[2017-07-24] MEDS ORDERED: BISACODYL (EC) 5 MG TAB PO ONE (08:00)
[2017-07-24] MEDS ORDERED: INFLUENZA VIRUS VACCINE 0.5 ML (DISPENSING) IM* ONE (09:00)
[2017-07-24] MEDS: ALPRAZOLAM 0.25 MG TAB PO SCH ×3 (09:19→20:37)
[2017-07-24] MEDS: ESCITALOPRAM 10 MG TAB PO SCH (09:19)
[2017-07-24] MEDS: ENOXAPARIN 40 MG/0.4 ML SYG SC SCH (09:23)
[2017-07-24 09:33] LABS: CREATININE 0.57 mg/dl (0.44-1.00); POTASSIUM 3.9 mmol/L (3.5-5.1)
[2017-07-24] MEDS ORDERED: HYDROmorphONE 4 MG TAB PO PRN (14:30)
--- NOTE | 2017-07-24 14:34 | PN ---
Date/Time of Note Date/Time of Note DATE: 07/24/17 TIME: 14:33 Assessment/Plan VTE Prophylaxis VTE Prophylaxis Intervention: LMWH Lines/Catheters IV Catheter Type (from Nrsg): Central Line Central line still needed: Yes Urinary Cath still in place: Yes Reason Cath still needed: urinary retention Assessment/Plan Chief Complaint/Hosp Course 62 yo female with h/o C Diff colitis, questionable reported history of UC, opiate use for chronic pain syndrome, RA on methotrexate and xeljanz who presents with nausea, vomiting, diarrhea with imaging suggestive of colitis Colitis: - Patient reports a history of ulcerative colitis, though not clear if this is a true diagnosis from review of her chart - Continue treatment for infectious colitis for now with zosyn - GI for colonoscopy - Send sample for C Diff - Manifesting sings of drug seeking behavior, so malingering certainly on the differential here RA: - Hold immunosupprisives (xeljanz and MTX) while concern for infection chronic pain w chronic opiate dependence: - Continue home Beattie dosing General anxiety d/o: - Continue home meds: buspar, klonipin, celexa Discharge to home when colitis resolved Problems: Subjective 24 Hr Interval Summary Free Text/Dictation Feels well, Mild pain in belly controlled Awiating colonoscopy Havign watery BMs again Exam/Review of Systems Vital Signs Vitals Vital Signs Date Time Temp Pulse Resp B/P Pulse Ox O2 Delivery O2 Flow Rate FiO2 07/24/17 13:50 98.6 85 18 109/60 95 07/22/17 20:24 Room Air Intake and Output 07/23/17 07/23/17 07/24/17 15:00 23:00 07:00 Intake Total 50 ml 1470 ml 1750 ml Output Total 1900 ml 1200 ml Balance 50 ml -430 ml 550 ml Exam Constitutional: alert, oriented, well developed Psych: nl mood/affect, no complaints Head: atraumatic, normocephalic Eyes: EOMI, PERRL, nl conjunctiva, nl lids, nl sclera ENMT: nl external ears & nose, nl lips & teeth, nl nasal mucosa & septum Neck: non-tender, supple Respiratory: clear to auscultation, normal air movement Cardiovascular: nl pulses, regular rate and rhythm Gastrointestinal: nl liver, spleen, non-tender, soft Musculoskeletal: nl extremities to inspection, nl gait and stance Extremities: normal pulses Neurological: HISTORIAN RESEARCH ASSISTANT II-XII intact, nl mental status, nl speech, nl strength Skin: nl turgor, No rash or lesions Lymph: nl lymph nodes Results Result Diagram: 07/24/17 0529 07/24/17 0815 Results 24 hrs Laboratory Tests Test 07/24/17 05:29 07/24/17 08:15 White Blood Count 6.6 Red Blood Count 3.62 L Hemoglobin 11.1 L Hematocrit 33.2 L Mean Corpuscular Volume 91.7 Mean Corpuscular Hemoglobin 30.7 Mean Corpuscular Hemoglobin Concent 33.4 Red Cell Distribution Width 13.5 Platelet Count 202 # Mean Platelet Volume 11.5 #H Neutrophils % 59.0 Lymphocytes % 24.3 Monocytes % 10.6 Eosinophils % 4.5 Basophils % 1.1 Nucleated Red Blood Cells % 0.0 Neutrophils # 3.9 Lymphocytes # 1.6 Monocytes # 0.7 Eosinophils # 0.3 Basophils # 0.1 Nucleated Red Blood Cells # 0.0 Prothrombin Time 13.2 Prothrombin Time Ratio 1.0 INR International Normalized Ratio 0.99 Activated Partial Thromboplast Time 26.0 Sodium Level 141 Potassium Level 3.9 Chloride Level 108 Carbon Dioxide Level 25 Anion Gap 12 Blood Urea Nitrogen 6 L Creatinine 0.57 Glucose Level 88 Calcium Level 9.0 Medications Medications Current Medications Piperacillin Sod/ Tazobactam Sod (Zosyn 3.375gm/ 50 ml (Pmx)) 50 ml @ 100 mls/ hr Q6 IVPB Last administered on 07/24/17 12:36; Admin Dose 100 MLS/HR; Start 07/22/17 at 19:00 Alprazolam (Xanax) 0.25 mg TID PO Last administered on 07/24/17 12:36; Admin Dose 0.25 MG; Start 07/22/17 at 21:00 Escitalopram Oxalate (Lexapro) 10 mg DAILY PO Last administered on 07/24/17 09 :19; Admin Dose 10 MG; Start 07/23/17 at 09:00 Enoxaparin Sodium (Lovenox) 40 mg DAILY SC Last administered on 07/24/17 09:23 ; Admin Dose 40 MG; Start 07/23/17 at 09:00 Diphenhydramine HCl (Benadryl) 25 mg Q6H PRN PO ITCHING Last administered on t 09:23; Admin Dose 25 MG; Start 07/23/17 at 09:00 Hydromorphone HCl (Dilaudid) 4 mg Q4H PRN PO PAIN; Start 07/24/17 at 14:30 JUAN JIMÉNEZ MD Jul 24, 2017 14:34
[2017-07-24] MEDS ORDERED: PHENYLephrine (100 MCG/ML) 5ML SYG ONE (14:51)
[2017-07-24] MEDS ORDERED: PROPOFOL 20 ML ONE (14:51)
--- NOTE | 2017-07-24 15:27 | OPPN ---
Date/Time of Note Date/Time of Note DATE: 07/24/17 TIME: 15:24 Proc Note GI Procedure Date 07/24/17 Indication: other (History of inflammatory bowel disease) Pre-procedure Diagnosis History of inflammatory bowel disease Post-procedure Diagnosis Impression: No evidence of colitis. Random biopsies obtained to rule out microscopic, lymphocytic or collagenous colitis Moderate-sized internal hemorrhoids. Otherwise normal colonoscopy. Plan: Advance diet as tolerated Observe Review pathology . Procedure Performed: Colonoscopy (With biopsies) Surgeon SPENCER NGUYỄN MD See signature line Laborer Rags none Anesthesia Type: MAC Anesthesiologist: BRENDEN MORRISON MD Tourniquet Time none EBL none Transfusion required none Biopsy 1: Right colon Biopsy 2: Left colon Grafts/Implants none Tubes/Drains none Complication(s) none Disposition: PACU Procedure Description After informed consent, with the patient/relatives understanding the procedure, its indications and potential risks and complications, including but not limited to: Allergic reaction, bleeding, perforation, infection, and after all pertinent questions were answered to the patient's satisfaction, the patient/ relatives signed the witnessed informed consent. Following this, premedication was administered slowly IV push under careful cardiovascular and respiratory monitoring with pulse OXIMETRY, automatic blood pressure, and livestock handler. Once the sedative effect was achieved, the patient was placed in the left lateral decubitus position, digital rectal examination was performed. The colonoscope was then introduced and advanced under visual control throughout all segments of the colon including: the rectum, sigmoid, descending colon, splenic flexure, transverse colon, hepatic flexure, ascending colon and finally reaching the cecum which was clearly identified by transillumination, finger indentation and the ileocecal valve. Careful examination of the mucosa of the lower gastrointestinal tract both on insertion as well as withdrawal of the instrument disclosed the following findings: PREPARATION QUALITY: [Adequate], RECTAL EXAM: The anorectal area was visualized examined and digital rectal examination performed with the following findings: No evidence of perirectal disease, no masses. COLONIC MUCOSA: The mucosa of all segments of the colon was carefully examined and showed the following findings: the examined mucosa appears within normal limits. There is no evidence of inflammatory changes, diverticular formation, polyps or neoplasms, vascular malformation, or any other abnormality.Random biopsies obtained. Rule out microscopic colitis. The instrument was then withdrawn, the patient tolerated the procedure well and was transferred out of the Endoscopy Suite awake and in good condition to continue recovery under observation. Copies To: CC: SPENCER NGUYỄN MD, MORDO MD Jul 24, 2017 15:27
--- NOTE | 2017-07-24 15:29 | HPN ---
Date/Time of Note Date/Time of Note DATE: 07/24/17 TIME: 15:29 Interval H&P Admission Note Pt. seen H&P reviewed: No system changes SPENCER NGUYỄN MD Jul 24, 2017 15:29
[2017-07-24] MEDS ORDERED: ALBUMIN HUMAN 5% 250 ML IV PRN (16:00)
[2017-07-24] MEDS ORDERED: ONDANSETRON 4 MG INJ IV PRN (16:00)
[2017-07-24] MEDS ORDERED: EPHEDrine SULFATE 50 MG/5 ML SYG IV PRN (16:00)
[2017-07-24] MEDS ORDERED: FENTAnyl 50 MCG/ML VIAL IV PRN (16:00)
[2017-07-24] MEDS: HYDROmorphONE 2 MG TAB PO PRN ×2 (16:29→20:38)
[2017-07-25] MEDS: PIPER-TAZO 3.375 GM IV (PMX) 50 ML IVPB SCH ×3 (00:11→12:34)
[2017-07-25] MEDS: HYDROmorphONE 2 MG TAB PO PRN ×6 (00:40→21:23)
[2017-07-25 01:57] VITALS: BP 109/62; RESP 20
[2017-07-25 08:15] VITALS: BP 110/65; RESP 16
--- NOTE | 2017-07-25 08:17 | CONS ---
Date/Time of Note Date/Time of Note DATE: 07/25/17 TIME: 08:16 Consultation Date/Type/Reason Admit Date/Time Type of Consultation: Pain management Hx of Present Illness Patient is a 62-year-old female with long-standing history of rheumatoid arthritis with significant joint involvement. Patient is currently on monoclonal gammopathy treatment that she states her pain is improved. She also history of ulcerative colitis which required this admission for any history of C. difficile colitis for which she is currently being worked up. CT scan of abdomen shows inflammatory response please refer to dictated report from radiology patient states her pain is generalized abdomen without nausea vomiting fevers chills cough associated with it does not radiate into her back or pelvis as a gnawing type of somatic discomfort not alleviated with current pain medications in the hospital but prior to admission she was taking 80 mg of Dilaudid orally every 4-6 hours generally in the range of 32 mg daily. Pain is rated 5/10 with pain control 3/10. She has no other systemic side effects associated with current pain control medication including nausea vomiting chest pain shortness of breath cough dizziness diplopia disorientation she is a non- smoker nondrinker is no past medical history of drug use excessive use of opioids incarceration motor vehicle accident. Subjective hx not possible: pt non-verbal Respiratory: no complaints Cardiovascular: no complaints Gastrointestinal: other (Low active bowel sounds all 4 quadrants without organomegaly masses tenderness rebound or peritoneal signs) Past Medical History Medical History: other (See HPI) Past Surgical History Past Surgical Hx: appendectomy, endoscopy (Colonoscopy 2), other (Total hip replacement 2, vulvectomy. Laparoscopies) Social History Alcohol Use: none Smoking Status: Current every day smoker Drug Use: none Exam/Review of Systems Vital Signs Vitals Vital Signs Date Time Temp Pulse Resp B/P Pulse Ox O2 Delivery O2 Flow Rate FiO2 07/25/17 01:57 98.5 94 20 109/62 94 07/24/17 15:48 Room Air Intake and Output 07/24/17 07/24/17 07/25/17 15:00 23:00 07:00 Intake Total 50 ml 510 ml 800 ml Output Total 1200 ml Balance 50 ml -690 ml 800 ml Results Result Diagram: 07/24/17 0529 07/24/17 0815 Medications Medications Current Medications Piperacillin Sod/ Tazobactam Sod (Zosyn 3.375gm/ 50 ml (Pmx)) 50 ml @ 100 mls/ hr Q6 IVPB Last administered on 07/25/17 05:33; Admin Dose 100 MLS/HR; Start 07/22/17 at 19:00 Alprazolam (Xanax) 0.25 mg TID PO Last administered on 07/24/17 20:37; Admin Dose 0.25 MG; Start 07/22/17 at 21:00 Escitalopram Oxalate (Lexapro) 10 mg DAILY PO Last administered on 07/24/17 09 :19; Admin Dose 10 MG; Start 07/23/17 at 09:00 Enoxaparin Sodium (Lovenox) 40 mg DAILY SC Last administered on 07/24/17 09:23 ; Admin Dose 40 MG; Start 07/23/17 at 09:00 Diphenhydramine HCl (Benadryl) 25 mg Q6H PRN PO ITCHING Last administered on 09:23; Admin Dose 25 MG; Start 07/23/17 at 09:00 Hydromorphone HCl (Dilaudid) 4 mg Q4H PRN PO PAIN Last administered on 05:33; Admin Dose 4 MG; Start 07/24/17 at 16:20 BRYANT HDZ Jul 25, 2017 08:17
[2017-07-25] MEDS: ALPRAZOLAM 0.25 MG TAB PO SCH ×4 (09:00→21:23)
[2017-07-25] MEDS: ESCITALOPRAM 10 MG TAB PO SCH (09:33)
[2017-07-25] MEDS: ENOXAPARIN 40 MG/0.4 ML SYG SC SCH (09:34)
--- NOTE | 2017-07-25 09:52 | PDOCDIS ---
Discharge Instructions DIAGNOSIS Discharge Diagnosis Diarrhea CONDITION Patient Condition: Fair FOLLOW UP/APPOINTMENTS Follow-up Plan Make an appointment with Dr Archie Rowe to review the results of your biopsy in the clinic See your primary doctors for further medical care Return to the hospital if you have any concerning symptoms JUAN JIMÉNEZ MD Jul 25, 2017 09:51
[2017-07-25 12:42] LABS: MYELOPEROXIDASE ANTIBODY <1.0 AI; PROTEINASE-3 ANTIBODY <1.0 AI
[2017-07-25 14:15] VITALS: BP 113/61; RESP 17
--- NOTE | 2017-07-25 14:16 | PN ---
Date/Time of Note Date/Time of Note DATE: 07/25/17 TIME: 14:15 Assessment/Plan VTE Prophylaxis VTE Prophylaxis Intervention: LMWH Lines/Catheters IV Catheter Type (from Nrsg): Mid Line Urinary Cath still in place: No Assessment/Plan Chief Complaint/Hosp Course 62 yo female with h/o C Diff colitis, questionable reported history of UC, opiate use for chronic pain syndrome, RA on methotrexate and xeljanz who presents with nausea, vomiting, diarrhea with imaging suggestive of colitis Abdominal pain/diarrhea: - Colonoscopy normal - Symptoms resolvedre RA: - Hold immunosupprisives (xeljanz and MTX) while concern for infection, resume at discharge chronic pain w chronic opiate dependence: - Continue home Russell dosing General anxiety d/o: - Continue home meds: buspar, klonipin, celexa Discharge to SNF on Thursday when able to be accepted. Ready for discharge Problems: Subjective 24 Hr Interval Summary Free Text/Dictation Colonoscopy normal Symptoms resolved Ready for discharge, unfortunately can't go back to [facility] until Thursday Exam/Review of Systems Vital Signs Vitals Vital Signs Date Time Temp Pulse Resp B/P Pulse Ox O2 Delivery O2 Flow Rate FiO2 07/25/17 08:15 98.4 87 16 110/65 94 07/24/17 15:48 Room Air Intake and Output 07/24/17 07/24/17 07/25/17 15:00 23:00 07:00 Intake Total 50 ml 510 ml 800 ml Output Total 1200 ml Balance 50 ml -690 ml 800 ml Exam Constitutional: alert, oriented, well developed Psych: nl mood/affect, no complaints Head: atraumatic, normocephalic Eyes: EOMI, PERRL, nl conjunctiva, nl lids, nl sclera ENMT: nl external ears & nose, nl lips & teeth, nl nasal mucosa & septum Neck: non-tender, supple Respiratory: clear to auscultation, normal air movement Cardiovascular: nl pulses, regular rate and rhythm Gastrointestinal: nl liver, spleen, non-tender, soft Musculoskeletal: nl extremities to inspection, nl gait and stance Extremities: normal pulses Neurological: C.O.D. BILLER II-XII intact, nl mental status, nl speech, nl strength Skin: nl turgor, No rash or lesions Lymph: nl lymph nodes Results Result Diagram: 07/24/17 0529 07/24/17 0815 Medications Medications Current Medications Piperacillin Sod/ Tazobactam Sod (Zosyn 3.375gm/ 50 ml (Pmx)) 50 ml @ 100 mls/ hr Q6 IVPB Last administered on 07/25/17 12:34; Admin Dose 100 MLS/HR; Start 07/22/17 at 19:00 Alprazolam (Xanax) 0.25 mg TID PO Last administered on 07/25/17 11:00; Admin Dose 0.25 MG; Start 07/22/17 at 21:00 Escitalopram Oxalate (Lexapro) 10 mg DAILY PO Last administered on 07/25/17 09 :33; Admin Dose 10 MG; Start 07/23/17 at 09:00 Enoxaparin Sodium (Lovenox) 40 mg DAILY SC Last administered on 07/25/17 09:34 ; Admin Dose 40 MG; Start 07/23/17 at 09:00 Diphenhydramine HCl (Benadryl) 25 mg Q6H PRN PO ITCHING Last administered on 09:23; Admin Dose 25 MG; Start 07/23/17 at 09:00 Hydromorphone HCl (Dilaudid) 4 mg Q4H PRN PO PAIN Last administered on 09:35; Admin Dose 4 MG; Start 07/24/17 at 16:20 Prochlorperazine (Compazine) 5 mg Q4H PRN PO NAUSEA AND/OR VOMITING; Start 07/25/17 at 14:30 JUAN JIMÉNEZ MD Jul 25, 2017 14:16
[2017-07-25] MEDS: PROCHLORPERAZINE 5 MG TAB PO PRN ×2 (14:27→18:27)
--- NOTE | 2017-07-25 16:44 | PN ---
Date/Time of Note Date/Time of Note DATE: 07/25/17 TIME: 16:38 Assessment/Plan VTE Prophylaxis VTE Prophylaxis Intervention: SCD's Lines/Catheters [facility] Mid Line Urinary Cath still in place: No Assessment/Plan Chief Complaint/Hosp Course Assessment: Status post colonoscopy Rule out microscopic colitis versus irritable bowel syndrome History of irritable bowel syndrome Rheumatoid arthritis with swan-neck deformities Chronic pain syndrome Anxiety disorder History of lymphoma Plan: Start Levsin 3 times daily before meals for cramping Advance to lactose-free diet as tolerated Consultation performed in collaboration with Dr. Rowe Subjective: Patient is feeling better, reports less abdominal pain and diarrhea improving. She states she has a history of IBS, currently not taking medications for it. Will start on Levsin for abdominal cramping. Change diet to lactose-free. PHYSICAL EXAMINATION: GENERAL: Well developed, well nourished, alert & oriented x 3, in no acute distress SKIN: No lesions, no stigmata chronic liver disease, no evidence of bleeding diathesis LYMPHATIC: No palpable lymphadenopathy. HEAD: Normocephalic, atraumatic, no tenderness. EYES: Pupils equal reactive to light and accommodation, full extraocular movements, sclera clear, non-icteric, no discharge. EARS/NOSE AND THROAT: Ears normal, nose normal, oropharynx normal, oral membranes well hydrated without lesions. NECK: Supple, no masses, thyroid normal, JVP within normal limits, carotids normal without bruits. CHEST: Inspection within normal limits. CARDIOVASCULAR: Heart: Regular rate and rhythm, no murmurs, gallops or rubs. Peripheral pulses present within normal limits, no cyanosis, clubbing or edemas. No pulsatile abdominal mass RESPIRATORY: Lungs clear to auscultation and percussion, no wheezing, no rubs GASTROINTESTINAL AND LIVER: Abdomen: Soft, generalized tenderness, non-distended , no hernias, no masses, no organomegaly, no ascites, no guarding, no rebound tenderness, normoactive bowel sounds. Rectal: Deferred. GENITOURINARY: Female genitalia within normal limits.] EXTREMITIES: No cyanosis, clubbing or edema. Mcalester-neck deformities of the hands and feet Problems: Exam/Review of Systems Vital Signs Vitals Vital Signs Date Time Temp Pulse Resp B/P Pulse Ox O2 Delivery O2 Flow Rate FiO2 07/25/17 14:15 97.9 85 17 113/61 97 07/24/17 15:48 Room Air Intake and Output 07/24/17 07/24/17 07/25/17 15:00 23:00 07:00 Intake Total 50 ml 510 ml 800 ml Output Total 1200 ml Balance 50 ml -690 ml 800 ml Results Result Diagram: 07/24/17 0529 07/24/17 0815 Medications Medications Current Medications Piperacillin Sod/ Tazobactam Sod (Zosyn 3.375gm/ 50 ml (Pmx)) 50 ml @ 100 mls/ hr Q6 IVPB Last administered on 07/25/17 12:34; Admin Dose 100 MLS/HR; Start 07/22/17 at 19:00 Alprazolam (Xanax) 0.25 mg TID PO Last administered on 07/25/17 11:00; Admin Dose 0.25 MG; Start 07/22/17 at 21:00 Escitalopram Oxalate (Lexapro) 10 mg DAILY PO Last administered on 07/25/17 09 :33; Admin Dose 10 MG; Start 07/23/17 at 09:00 Enoxaparin Sodium (Lovenox) 40 mg DAILY SC Last administered on 07/25/17 09:34 ; Admin Dose 40 MG; Start 07/23/17 at 09:00 Diphenhydramine HCl (Benadryl) 25 mg Q6H PRN PO ITCHING Last administered on 09:23; Admin Dose 25 MG; Start 07/23/17 at 09:00 Hydromorphone HCl (Dilaudid) 4 mg Q4H PRN PO PAIN Last administered on 14:22; Admin Dose 4 MG; Start 07/24/17 at 16:20 Prochlorperazine (Compazine) 5 mg Q4H PRN PO NAUSEA AND/OR VOMITING Last administered on 07/25/17 14:27; Admin Dose 5 MG; Start 07/25/17 at 14:30 AMADOU CATALAN NP Jul 25, 2017 16:44
[2017-07-25] MEDS: HYOSCYAMINE 0.125 MG TAB PO SCH (18:27)
[2017-07-25 20:00] VITALS: BP 117/64; RESP 16
[2017-07-26 01:16] VITALS: BP 110/62; RESP 14
[2017-07-26] MEDS: HYDROmorphONE 2 MG TAB PO PRN ×6 (01:17→21:26)
[2017-07-26] MEDS: PROCHLORPERAZINE 5 MG TAB PO PRN ×6 (01:17→21:26)
[2017-07-26 07:54] VITALS: BP 116/58; RESP 18
[2017-07-26] MEDS: ESCITALOPRAM 10 MG TAB PO SCH (08:37)
[2017-07-26] MEDS: HYOSCYAMINE 0.125 MG TAB PO SCH ×3 (08:37→17:25)
[2017-07-26] MEDS: ALPRAZOLAM 0.25 MG TAB PO SCH ×3 (08:37→20:42)
[2017-07-26] MEDS: ENOXAPARIN 40 MG/0.4 ML SYG SC SCH (08:43)
--- NOTE | 2017-07-26 14:18 | DS ---
Date/Time of Note Date/Time of Note DATE: 07/26/17 TIME: 14:15 Discharge Summary Admission/Discharge Info Admit Date/Time Jul 24, 2017 at 16:04 Discharge Date/Time Discharge Diagnosis Diarrhea Patient Condition: Fair Hx of Present Illness 62 yo female with reported history of UC (though not clear from our chart she has this), RA on methotrexate and Xeljanz, C Diff colitis, chornic pain sydnrome on chornic opaites who presents with abdominal pain as well as nausea and vomiting and very frequent watery diarrhea. Patient has had these symptoms since yesterday. Unable to tolerate PO. In ED, CT scan showed colitis. She was very nauseous requiring numerous rounds of antiemetics. Currently major compliant is of abdmoinal pain for which she requests pian meds. Hospital Course 62 yo female with h/o C Diff colitis, questionable reported history of UC, opiate use for chronic pain syndrome, RA on methotrexate and xeljanz who presents with nausea, vomiting, diarrhea with imaging suggestive of colitis The patient's diarrhea resolved on admission and she was unable to provide a stool sample. She was treated with antibiotics for concern for colitis. She underwent colonoscopy that was unremarkable. She requested increasing doses of dilaudid and benzodiazepines raising the question for an opiate use disorder. Dr Hodge was consulted for guidance. The patient was cleared for discharge back to [facility] who is able to accept her on Thursday. She was encourage to follow up with her primary doctor and Dr Rowe following discharge. No changes were made to her home medications, though it is not clear exactly what medications she is on. Home Meds Reported Medications Lorazepam* (Lorazepam*) 1 Mg Tablet, 1 MG PO BID Y for ANXIETY, #30 TAB 07/22/17 Pantoprazole (Protonix) 40 Mg Tabec, 40 MG PO DAILY 09/05/13 Multivitamin (MULTI VITAMIN DAILY) 1 Each Tablet, 1 EACH PO DAILY 09/05/13 Midodrine (Proamatine) 5 Mg Tablet, 5 MG PO TID 09/05/13 Lamotrigine* (Lamictal* CHEW) 25 Mg Tab.disper, 25 MG PO BID 09/05/13 Hydromorphone Hcl* (Dilaudid*) 2 Mg Tablet, 2 MG PO Q3NARC 09/05/13 Fentanyl Patch* (Duragesic Patch*) 1 Patch Patch, 1 PATCH TD Q72 09/05/13 Escitalopram Oxalate* (Lexapro*) 10 Mg Tablet, 10 MG PO DAILY 09/05/13 Diphenhydramine Hcl* (Benadryl*) 25 Mg Cap, 25 MG PO Q6 09/05/13 Clonazepam* (Klonopin*) 0.5 Mg Tab, 0.5 MG PO HS 09/05/13 Cholecalciferol* (Vitamin D3*) 2,000 Unit Cap, 2000 UNIT PO DAILY 09/05/13 Aspirin (Aspirin) 81 Mg Chew, 81 MG PO DAILY 09/05/13 Alprazolam* (Xanax*) 0.25 Mg Tablet, 0.25 MG PO TID 09/05/13 Lactobacillus Acidophilus* (Lactinex*) 1 Tab Chew, 1 TAB PO DAILY 09/05/13 Discontinued Reported Medications Magnesium Oxide (Mag Oxide) 400 Mg Capsule, 400 MG PO DAILY 09/10/13 Prednisone* (Prednisone*) 5 Mg Tab, 5 MG PO DAILY 09/05/13 Levothyroxine Sodium* (Levothyroxine Sodium*) 137 Mcg Tablet, 137 MCG PO DAILY 09/05/13 Discontinued Scripts Ciprofloxacin Hcl* (Ciprofloxacin Hcl*) 500 Mg Tablet, 500 MG PO BID for 7 Days , TAB Prov:DOM CONCEPCION MD 10/27/14 Metronidazole* (Flagyl*) 500 Mg Tablet, 500 MG PO Q8 for 10 Days, TAB Prov:DOM CONCEPCION MD 10/27/14 Follow-up Plan Make an appointment with Dr Archie Rowe to review the results of your biopsy in the clinic See your primary doctors for further medical care Return to the hospital if you have any concerning symptoms Primary Care Provider JUAN Weiss MD Jul 26, 2017 14:18
[2017-07-26 14:56] VITALS: BP 109/57; RESP 14
--- NOTE | 2017-07-26 16:08 | PN ---
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 Rowe Subjective: Patient is feeling better, reports less abdominal cramping and diarrhea improving, 2 loose stools today. Pending discharge home. Patient is stable from GI standpoint. Will sign off to hospitalist. Available for consultation upon request. PHYSICAL EXAMINATION: GENERAL: Well developed, well nourished, alert & oriented x 3, in no acute distress SKIN: No lesions, no stigmata chronic liver disease, no evidence of bleeding diathesis LYMPHATIC: No palpable lymphadenopathy. HEAD: Normocephalic, atraumatic, no tenderness. EYES: Pupils equal reactive to light and accommodation, full extraocular movements, sclera clear, non-icteric, no discharge. EARS/NOSE AND THROAT: Ears normal, nose normal, oropharynx normal, oral membranes well hydrated without lesions. NECK: Supple, no masses, thyroid normal, JVP within normal limits, carotids normal without bruits. CHEST: Inspection within normal limits. CARDIOVASCULAR: Heart: Regular rate and rhythm, no murmurs, gallops or rubs. Peripheral pulses present within normal limits, no cyanosis, clubbing or edemas. No pulsatile abdominal mass RESPIRATORY: Lungs clear to auscultation and percussion, no wheezing, no rubs GASTROINTESTINAL AND LIVER: Abdomen: Soft, generalized tenderness, non-distended , no hernias, no masses, no organomegaly, no ascites, no guarding, no rebound tenderness, normoactive bowel sounds. Rectal: Deferred. GENITOURINARY: Female genitalia within normal limits.] EXTREMITIES: No cyanosis, clubbing or edema. [place]-neck deformities of the hands and feet Problems: Exam/Review of Systems Vital Signs Vitals Vital Signs Date Time Temp Pulse Resp B/P Pulse Ox O2 Delivery O2 Flow Rate FiO2 07/26/17 14:56 98.1 102 14 109/57 97 07/24/17 15:48 Room Air Intake and Output 07/25/17 07/25/17 07/26/17 15:00 23:00 07:00 Intake Total 50 ml 2140 ml 690 ml Output Total 1200 ml 500 ml Balance 50 ml 940 ml 190 ml Results Result Diagram: 07/24/17 0529 07/24/17 0815 Medications Medications Current Medications Alprazolam (Xanax) 0.25 mg TID PO Last administered on 07/26/17 12:21; Admin Dose 0.25 MG; Start 07/22/17 at 21:00 Escitalopram Oxalate (Lexapro) 10 mg DAILY PO Last administered on 07/26/17 08 :37; Admin Dose 10 MG; Start 07/23/17 at 09:00 Enoxaparin Sodium (Lovenox) 40 mg DAILY SC Last administered on 07/26/17 08:43 ; Admin Dose 40 MG; Start 07/23/17 at 09:00 Diphenhydramine HCl (Benadryl) 25 mg Q6H PRN PO ITCHING Last administered on 09:23; Admin Dose 25 MG; Start 07/23/17 at 09:00 Hydromorphone HCl (Dilaudid) 4 mg Q4H PRN PO PAIN Last administered on 13:29; Admin Dose 4 MG; Start 07/24/17 at 16:20 Prochlorperazine (Compazine) 5 mg Q4H PRN PO NAUSEA AND/OR VOMITING Last administered on 07/26/17 13:29; Admin Dose 5 MG; Start 07/25/17 at 14:30 Copies To: CC: SPENCER ROWE MD, ANASTASIA NP Jul 26, 2017 16:08
[2017-07-26 20:09] VITALS: BP 110/60; RESP 18
[2017-07-26] MEDS ORDERED: ZOLPIDEM 5 MG TAB PO PRN (21:00)
[2017-07-27] MEDS: PROCHLORPERAZINE 5 MG TAB PO PRN ×3 (01:31→09:43)
[2017-07-27] MEDS: HYDROmorphONE 2 MG TAB PO PRN ×3 (01:31→09:43)
[2017-07-27 02:00] VITALS: BP 98/64; RESP 18
[2017-07-27 07:50] VITALS: BP 112/64; RESP 19
[2017-07-27] MEDS: HYOSCYAMINE 0.125 MG TAB PO SCH ×2 (08:07→12:08)
[2017-07-27] MEDS: ESCITALOPRAM 10 MG TAB PO SCH (08:08)
[2017-07-27] MEDS: ALPRAZOLAM 0.25 MG TAB PO SCH ×2 (08:08→12:08)
[2017-07-27] MEDS: ENOXAPARIN 40 MG/0.4 ML SYG SC SCH (08:15)
== END 2017-07-27 14:25 | disposition home or self-care (01) | DRG 392 ==
LOC: E/R 11:49 → MS2 17:12 → OBSVTOIN 07-24 16:04
PROVIDERS: ADMIT Internal Medicine; ATTEND Internal Medicine
PROC: 0DBF8ZX Excision of Right Large Intestine, Via Natural or Artificial Opening Endoscopic, Diagnostic (ICD-10-PCS; 2017-07-24)
PROC: 0DBG8ZX Excision of Left Large Intestine, Via Natural or Artificial Opening Endoscopic, Diagnostic (ICD-10-PCS; principal; 2017-07-24 21:00)
DX: A09 Infectious gastroenteritis and colitis, unspecified (principal); F11.20 Opioid dependence, uncomplicated; M06.9 Rheumatoid arthritis, unspecified; G89.4 Chronic pain syndrome; Z79.899 Other long term (current) drug therapy; F41.1 Generalized anxiety disorder; F17.200 Nicotine dependence, unspecified, uncomplicated; Z85.72 Personal history of non-Hodgkin lymphomas; Z90.49 Acquired absence of other specified parts of digestive tract; Z96.643 Presence of artificial hip joint, bilateral; K64.8 Other hemorrhoids; D47.2 Monoclonal gammopathy
CPT/HCPCS: 36415; 71010; 74177; 80048; 80053; 83690; 85025; 85610; 85730; 86021; 88305; 90686; 96374; 96375; 96376; G0378; J0780; J1170; J1335; J1650; J2370; J2405; J2543; J2765; J3480; J7030; Q9967